=== PATIENT | male | born 1960 | race Caucasian/White ===

== ENCOUNTER 2020-10-28 11:25 | Emergency (ER) | payer OTHER ==
--- NOTE | 2020-10-28 12:21 | RAD REPORT ---
EXAM DESCRIPTION: CT - Head Brain Wo Cont - 10/28/2020 12:13 pm CLINICAL HISTORY: paresthesia and weakness left hand Headache, drowsiness, altered awareness COMPARISON: No comparisons TECHNIQUE: All CT scans are performed using dose optimization technique as appropriate and may inclu de automated exposure control or mA/KV adjustment according to patient size. FINDINGS: No intracranial hemorrhage, hydrocephalus or extra-axial fluid collection.Mild gliosis in the superior right frontal lobe likely related to previous trauma or infarct.No areas of brain edema or evidence of midline shift. The paranasal sinuses and mastoids are clear. The calvarium is intact. IMPRESSION: No acute intracranial abnormality.
--- NOTE | 2020-10-28 12:43 | ER ---
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 Coronavirus screen: Client denies travel out of the [place] in the last 14 days. At this time, the client does not indicate any symptoms associated with coronavirus-19. Ebola Screen: No symptoms or risks identified at this time. Initial Sepsis Screen: Does the patient meet any 2 criteria? No. Patient's initial sepsis screen is negative. Does the patient have a suspected source of infection? No. Patient's initial sepsis screen is negative. Risk Assessment: Do you want to hurt yourself or someone else? Patient reports no desire to harm self or others. Onset of symptoms was October 28, 2020. 11:36 Method Of Arrival: EMS: [facility] ph 11:36 Acuity: SELAM 4 ph Historical: - Allergies: 11:41 SHELLFISH; ph 11:41 PORK/PORCINE PRODUCT DERIVATIVES; ph - PMHx: 11:41 pulmonary embolism; DVT; Hypertension; Hyperlipidemia; ph - Immunization history:: Adult Immunizations up to date. - Social history:: Smoking status: Patient denies any tobacco usage or history of. - Family history:: not pertinent. - Hospitalizations: : No recent hospitalization is reported. Screenin:42 Abuse screen: Denies threats or abuse. Denies injuries from another. Nutritional ph screening: No deficits noted. Tuberculosis screening: No symptoms or risk factors identified. Fall Risk None identified. Assessment: 11:42 General: Appears in no apparent distress. comfortable, Behavior is calm, cooperative, ph appropriate for age. Pain: Denies pain. Neuro: Level of Consciousness is awake, alert, obeys commands, Oriented to person, place, time, situation, Speech is normal, Facial symmetry appears normal, Facial symmetry: tongue is midline, Pupils are PERRLA, Intact Reports numbness paresthesias in left middle, ring, and pinky, finger. Cardiovascular: Capillary refill < 3 seconds in bilateral fingers Patient's skin is warm and dry. Respiratory: Airway is patent Respiratory effort is even, unlabored, Respiratory pattern is regular, symmetrical. GI: No signs and/or symptoms were reported involving the gastrointestinal system. Derm: Skin is intact, is healthy with good turgor, Skin is pink, warm \T\ dry. Musculoskeletal: Circulation, motion, and sensation intact. Range of motion: intact in all extremities. 13:00 Reassessment: No changes from previously documented assessment. Patient and/or family ll1 updated on plan of care and expected duration. Pain level reassessed. 13:57 Reassessment: Patient and/or family updated on plan of care and expected duration. Pain ll1 level reassessed. Patient is alert, oriented x 3, equal unlabored respirations, skin warm/dry/pink. Vital Signs: 11:36 BP 168 / 92; Pulse 102; Resp 18; Temp 97.5; Pulse Ox 100% on R/A; Weight 92.99 kg; ph Height 6 ft. 0 in. (182.88 cm); 13:03 BP 154 / 99; Pulse 108; Resp 18; Temp 97.5; Pulse Ox 99% on R/A; ph 11:36 Body Mass Index 27.80 (92.99 kg, 182.88 cm) ph ED Course: 11:35 Patient arrived in ED. ph 11:36 Manohar Cook MD is Attending Physician. rn 11:39 Triage completed. ph 11:41 Arm band placed on Patient placed in an exam room, on a stretcher, on pulse oximetry. ph 11:42 Patient has correct armband on for positive identification. Bed in low position. Call ph light in reach. Side rails up X 1. Pulse ox on. NIBP on. Warm blanket given. 12:13 CT Head Brain wo Cont In Process Unspecified. EDMS 13:03 Latanya Heller, JUDIT is Primary Nurse. ph 13:04 No provider procedures requiring assistance completed. IV discontinued, intact, ph bleeding controlled, No redness/swelling at site. Pressure dressing applied. 13:09 Arm board to inner left arm. Secured straight with elana wraps. Tolerated well. PMS ll1 intact.. Administered Medications: 13:05 Drug: Decadron 10 mg Route: IM; Site: left deltoid; 1 13:57 Follow up: Response: No adverse reaction; RASS: Alert and Calm (0) 1 Outcome: 12:42 Discharge ordered by . rn 13:57 Discharged to home ambulatory. 1 13:57 Condition: stable 13:57 Discharge instructions given to patient, Instructed on discharge instructions, follow up and referral plans. medication usage, Demonstrated understanding of instructions, follow-up care, medications, Prescriptions given X 1. 13:58 Patient left the ED. 1 Signatures: Dispatcher [employer] EDMS Manohar Cook MD MD rn Hall, Patricia, RN RN ph Lewis, Lynsay, RN RN [facility]
--- NOTE | 2020-10-28 12:43 | EDPHYS ---
Physician Documentation [facility] Name: Parker Loyola Age: 59 yrs Sex: Male : 1960 Arrival Date: 10/28/2020 Time: 11:35 Bed 2 Private MD: ED Physician Manohar Cook HPI: 10/28 12:03 This 59 yrs old Male presents to ER via EMS with complaints of Numbness Of rn Hand. 12:03 The patient or guardian reports weakness, numbness. The complaints affect the left rn lateral fingers and palm of hand. Onset: The symptoms/episode began/occurred 5 day(s) ago. Modifying factors: The symptoms are alleviated by nothing, the symptoms are aggravated by bending arm. Associated signs and symptoms: Pertinent negatives: fever. Severity of symptoms: At their worst the symptoms were mild, in the emergency department the symptoms are unchanged. The patient has experienced a previous episode. The patient has not recently seen a physician. 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 Also sleeps with arm bent. No other focal neuro complaints. . Historical: - Allergies: 11:41 SHELLFISH; ph 11:41 PORK/PORCINE PRODUCT DERIVATIVES; ph - PMHx: 11:41 pulmonary embolism; DVT; Hypertension; Hyperlipidemia; ph - Immunization history:: Adult Immunizations up to date. - Social history:: Smoking status: Patient denies any tobacco usage or history of. - Family history:: not pertinent. - Hospitalizations: : No recent hospitalization is reported. ROS: 12:03 Constitutional: Negative for fever, chills, and weight loss, Eyes: Negative for injury, rn pain, redness, and discharge, Neck: Negative for injury, pain, and swelling, Cardiovascular: Negative for chest pain, palpitations, and edema, Respiratory: Negative for shortness of breath, cough, wheezing, and pleuritic chest pain, Abdomen/GI: Negative for abdominal pain, nausea, vomiting, diarrhea, and constipation, Back: Negative for injury and pain, MS/Extremity: Negative for injury and deformity, Skin: Negative for injury, rash, and discoloration, Neuro: Negative for headache, and seizure. Exam: 12:03 Constitutional: This is a well developed, well nourished patient who is awake, alert, rn and in no acute distress. Head/Face: Normocephalic, atraumatic. Eyes: Pupils equal round and reactive to light, extra-ocular motions intact. Lids and lashes normal. Conjunctiva and sclera are non-icteric and not injected. Cornea within normal limits. Periorbital areas with no swelling, redness, or edema. Cardiovascular: Regular rate and rhythm. No pulse deficits. Respiratory: No increased work of breathing, no retractions or nasal flaring. Abdomen/GI: soft, non-tender Skin: Warm, dry with normal turgor. Normal color with no rashes, no lesions, and no evidence of cellulitis. MS/ Extremity: Pulses equal, no cyanosis. Neuro: Awake and alert, GCS 15, oriented to person, place, time, and situation. Cranial nerves II-XII grossly intact. Motor strength 5/5 in all extremities. Sensory grossly intact. Cerebellar exam normal. + paresthesias of left lateral finger and palm of hand. Vital Signs: 11:36 BP 168 / 92; Pulse 102; Resp 18; Temp 97.5; Pulse Ox 100% on R/A; Weight 92.99 kg; ph Height 6 ft. 0 in. (182.88 cm); 13:03 BP 154 / 99; Pulse 108; Resp 18; Temp 97.5; Pulse Ox 99% on R/A; ph 11:36 Body Mass Index 27.80 (92.99 kg, 182.88 cm) ph MDM: 11:36 Patient medically screened. rn 12:40 Differential diagnosis: peripheral neuropathy. Data reviewed: vital signs, nurses rn notes, radiologic studies, CT scan, and as a result, I will discharge patient. Counseling: I had a detailed discussion with the patient and/or guardian regarding: the historical points, exam findings, and any diagnostic results supporting the discharge/admit diagnosis, radiology results, the need for outpatient follow up, to return to the emergency department if symptoms worsen or persist or if there are any questions or concerns that arise at home. Special discussion: I discussed with the patient/guardian in detail that at this point there is no indication for admission to the hospital. It is understood, however, that if the symptoms persist or worsen the patient needs to return immediately for re-evaluation. ED course: Recommend keeping arm straight and sleeping with arm straight, minimize bending elbow beyond 90 degrees. . 10/28 11:40 Order name: CT Head Brain wo Cont; Complete Time: 12:40 rn Administered Medications: 13:05 Drug: Decadron 10 mg Route: IM; Site: left deltoid; ll1 13:57 Follow up: Response: No adverse reaction; RASS: Alert and Calm (0) ll1 Disposition: 10/28/20 12:42 Discharged to Home. 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 - Condition is Stable. - Discharge Instructions: Peripheral Neuropathy. - Prescriptions for Medrol (Melecio) 4 mg Oral Tablets, Dose Pack - take 1 tablet by ORAL route as directed - follow package instructions; 1 packet. - Medication Reconciliation Form, Thank You Letter, Antibiotic Education, Prescription Opioid Use form. - Follow up: Private Physician; When: As needed; Reason: Recheck today's complaints, Re-evaluation by your physician. - Problem is new. - Symptoms are unchanged. Signatures: Dispatcher [employer] EDMS Manohar Cook MD MD rn Hall, Patricia, RN RN Ileana Nguyen RN RN ll1 Corrections: (The following items were deleted from the chart) 13:58 12:42 10/28/2020 12:42 Discharged to Home. Impression: Peripheral neuropathy - ulnar ll1 nerve left arm. Condition is Stable. Forms are Medication Reconciliation Form, Thank You Letter, Antibiotic Education, Prescription Opioid Use. Follow up: Private Physician; When: As needed; Reason: Recheck today's complaints, Re-evaluation by your physician. Problem is new. Symptoms are unchanged. rn
[2020-10-28] MEDS ORDERED: dexAMETHasone 10 MG/ML VIAL ONE (13:14)
[2020-10-30 10:24] VITALS: TEMP 97.5
[2020-10-30 10:26] VITALS: BP 154/99; O2SAT 99
== END 2020-10-28 13:58 | disposition home or self-care (01) ==
LOC: ER 11:25
DX: G62.9 Polyneuropathy, unspecified (principal); Z91.013 Allergy to seafood; Z91.018 Allergy to other foods
CPT/HCPCS: 70450; 96372; 99284; J1100